=== PATIENT | female | born 1990 | race American Indian/Alaskan Native ===

== ENCOUNTER 2020-07-24 13:22 | Emergency (ER) | payer OTHER ==
--- NOTE | 2020-07-24 13:25 | Emergency Department Report ---
Blank Doc - Documentation Documentation: 29-year-old female that presents with chest pain and cough. Possible exposure to mold. This initial assessment/diagnostic orders/clinical plan/treatment(s) is/are subject to change based on patient's health status, clinical progression and re- assessment by fellow clinical providers in the ED. Further treatment and workup at subsequent clinical providers discretion. Patient/guardians urged not to elope from the ED as their condition may be serious if not clinically assessed and managed. Initial orders include: 1- Patient sent to [facility] for further evaluation and treatment 2- CXR 3- EKG
--- NOTE | 2020-07-24 14:06 | XRay Report ---
CHEST 2 VIEWS INDICATION / CLINICAL INFORMATION: cp/cough. FINDINGS: SUPPORT DEVICES: None. HEART / MEDIASTINUM: No significant abnormality. LUNGS / PLEURA: No significant pulmonary or pleural abnormality. No pneumothorax. ADDITIONAL FINDINGS: No significant additional findings. IMPRESSION: 1. No acute findings. Signer Name: Jm Hassan MD Signed: 07/24/2020 2:01 PM Workstation Name: [id number]
--- NOTE | 2020-07-24 14:37 | Emergency Department Report ---
ED Shortness of Breath HPI - General Chief Complaint: Dyspnea/Respdistress Stated Complaint: BLACK MOLD/ASTHMA Time Seen by Provider: 07/24/20 13:24 Source: patient Mode of arrival: Ambulatory Limitations: No Limitations - Related Data Allergies Allergy/AdvReac Type Severity Reaction Status Date / Time No Known Allergies Allergy Unverified 07/24/20 13:26 ED Review of Systems ROS: Stated complaint: BLACK MOLD/ASTHMA Other details as noted in HPI Comment: All other systems reviewed and negative ED Past Medical Hx - Past Medical History Previous Medical History?: Yes Hx Asthma: Yes - Surgical History Past Surgical History?: Yes Additional Surgical History: Umbilical hernia, Tonsil removal - Social History Smoking Status: Former Smoker ED Physical Exam - General Limitations: No Limitations General appearance: alert, in no apparent distress - Head Head exam: Present: atraumatic, normocephalic - Eye Eye exam: Present: normal appearance - ENT ENT exam: Present: mucous membranes moist - Neck Neck exam: Present: normal inspection - Respiratory Respiratory exam: Present: normal lung sounds bilaterally. Absent: respiratory distress - Cardiovascular Cardiovascular Exam: Present: regular rate, normal rhythm. Absent: systolic murmur, diastolic murmur, rubs, gallop - GI/Abdominal GI/Abdominal exam: Present: soft, normal bowel sounds - Extremities Exam Extremities exam: Present: normal inspection - Back Exam Back exam: Present: normal inspection - Neurological Exam Neurological exam: Present: alert, oriented X3 - Psychiatric Psychiatric exam: Present: normal affect, normal mood - Skin Skin exam: Present: warm, dry, intact, normal color. Absent: rash ED Medical Decision Making - Radiology Data Radiology results: report reviewed Ordering Physician: CALLIE CAMPO NP Date of Service: 07/24/20 Procedure(s): XR chest routine 2V Accession Number(s): [id number] cc: CALLIE CAMPO NP Fluoro Time In Minutes: CHEST 2 VIEWS INDICATION / CLINICAL INFORMATION: cp/cough. FINDINGS: SUPPORT DEVICES: None. HEART / MEDIASTINUM: No significant abnormality. LUNGS / PLEURA: No significant pulmonary or pleural abnormality. No pneumothorax. ADDITIONAL FINDINGS: No significant additional findings. IMPRESSION: 1. No acute findings. Signer Name: Jm Hassan MD Signed: 07/24/2020 2:01 PM Workstation Name: [id number] Transcribed By: Dictated By: Jm Hassan MD Electronically Authenticated By: Jm Hassan MD Signed Date/Time: 07/24/201400 DD/ 00 TD/TT: Critical care attestation.: If time is entered above; I have spent that time in minutes in the direct care of this critically ill patient, excluding procedure time. ED Disposition Clinical Impression: SOB (shortness of breath), Asthma Disposition: - TO HOME OR SELFCARE Is pt being admited?: No Does the pt Need Aspirin: No Condition: Stable Instructions: Asthma (ED), Reactive Airways Disease (ED) Additional Instructions: Chest x-ray was negative for any acute findings. I recommend following up with a primary care provider, [employer] security consultant and asthma specialist in a [facility]. I have listed their information below for your convenience. Referrals: PRIMARY MD SOLITARIO [Primary Care Provider] - 3-5 Days [facility] [Provider Group] - 3-5 Days BALDEMAR RODRÍGUEZ MD [Staff Physician] - 3-5 Days MARGOT ALAS MD [Staff Physician] - 3-5 Days
== END 2020-07-24 14:48 | disposition home or self-care (01) ==
LOC: ED 13:22
DX: J45.909 Unspecified asthma, uncomplicated (principal)
CPT/HCPCS: 71046; 93005; 99283